=== PATIENT | female | born 1960 | race Caucasian/White ===

== ENCOUNTER 2017-06-19 19:01 | Emergency (ER) | payer BC ==
[~2017-06-19] VITALS: Ht 152.4 cm; Wt 84.8 kg
[~2017-06-19 19:01] MED LIST: ADALAT CC; ASPIRIN81 M1 PO; BAYER ASPIRIN325 M1 PO; CRESTOR10 MG PO; NAPROSYN250 M1 PO; NIFEDIAC CC60 MG PO; PRILOSEC20 M1 PO
== END 2017-06-19 21:14 | disposition home or self-care (01) ==
LOC: CED 19:01
DX: R03.0 Elevated blood-pressure reading, without diagnosis of hypertension (principal); R51 Headache; F41.9 Anxiety disorder, unspecified; F17.210 Nicotine dependence, cigarettes, uncomplicated
CPT/HCPCS: 99283